=== PATIENT | male | born 1985 | race Caucasian/White ===

== ENCOUNTER 2023-03-17 03:16 | Emergency (ER) | payer BC ==
[~2023-03-17] VITALS: Ht 188 cm; Wt 81.0 kg
[2023-03-17 03:24] VITALS: TEMP 98.4; O2SAT 99
[2023-03-17] MEDS ORDERED: ASPIRIN 81MG TABLET PO ONE (04:15)
[2023-03-17 04:54] LABS: BASOPHILS % 1.1 % (0.0-2.0); HEMOGLOBIN. 14.1 g/dL (14.0-18.0); LYMPHOCYTES % 46.8 % (20.0-50.0); MEAN CORPUSCULAR HEMOGLOBIN 32.5 pg (28.0-32.0); MEAN CORPUSCULAR VOLUME 94.5 fL (80.0-94.0); MEAN PLATELET VOLUME 7.4 fl (7.4-10.4); MONOCYTES % 7.6 % (2.0-8.0); NEUTROPHILS % 40.5 % (40.0-76.0); PLATELET 305 x1000/uL (130-400); RED BLOOD CELL COUNT 4.34 mill/uL (4.7-6.1); RED CELL DISTRIBUTION WIDTH 13.3 % (11.6-14.6)
[2023-03-17] MEDS ORDERED: SODIUM CHLORIDE 0.9% 1,000 ML IV ONE (05:00)
[2023-03-17 05:04] LABS: CHLORIDE 109 mEq/L (98-107)
[2023-03-17 05:19] LABS: ETHANOL BLOOD 203 mg/dL (-10)
[2023-03-17 05:30] VITALS: BP 134/89; PULSE 103; RESP 14
== END 2023-03-17 05:40 | disposition home or self-care (01) ==
LOC: ER 03:16
DX: R00.2 Palpitations (principal); F17.210 Nicotine dependence, cigarettes, uncomplicated
CPT/HCPCS: 80053; 80320; 84443; 85025; 85379; 84484; 36415; 71045; 93005; 99285; Z7610; J7030; G0480